=== PATIENT | male | born 1950 | race Caucasian/White ===

== ENCOUNTER 2016-07-17 20:40 | Emergency (ER) | payer OTHER ==
[~2016-07-17] VITALS: Ht 177.8 cm; Wt 97.5 kg
[~2016-07-17 20:40] MED LIST: ATORVASTATIN CA10 M1 PO; AUGMENTIN 875-1 EACH PO
--- NOTE | 2016-07-17 21:41 | ED GI/GU/ABDOMINAL COMPLAINT ---
History of Present Illness General Chief Complaint: General Adult Stated Complaint: HEMRRHOIDS Source: patient, family Exam Limitations: no limitations Vital Signs & Intake/Output Vital Signs & Intake/Output Vital Signs Date Time Temp Pulse Resp B/P B/P Pulse O2 O2 Flow FiO2 Mean Ox Delivery Rate 07/17 2210 97.3 87 18 139/85 94 Room Air 07/175 96.4 100 20 119/72 95 Room Air ED Intake and Output 07/18 0000 07/17 1200 Intake Total Output Total Balance Patient 215 lb Weight Weight Reported by Patient Measurement Method Allergies Coded Allergies: No Known Allergies (07/17/16) Reconcile Medications Atorvastatin Calcium 10 MG TABLET 1 TAB PO DAILY CHOLESTEROL (Reported) Lidocaine (Anecream5) 5 % CREAM..G. 1 MECHELLE TOP TID PRN HEMMORHOIDS Phenyleph/Pramoxin/Glycr/W.pet (Preparation H Cream) 0.25 %-1 % CREAM..G. 1 MECHELLE TOP TID PRN HEMMORHOIDS Triage Note: PT TO ED COMPLAINING OF PAIN FROM HEMRRHOIDS UNRELIEVED BY OTC MEDICATION. PT ALSO C/O OF RECTAL BLEEDING "EVEN WHEN I'M NOT GOING TO BATHROOM." REPORTS BRIGHT RED BLOOD. PT ON ABX FOR "CHEST INFECTION" REPORTS PRODUCTIVE COUGH WITH GREEN/BROWN SPUTUM. PT AWAKE/ALERT WITH EASY WOB IN TRIAGE. Triage Nurses Notes Reviewed? yes Duration: constant Timing: single episode today Quality/Severity: burning, severe Severity Numbers: 8 Radiation: no radiation Prior Abdominal Problems: similar symptoms HPI: Patient is a 66-year-old male who presents emergency room with concerns of a external hemorrhoid. Patient does state that he's had them before however he states that yesterday he had a significant bowel movement however symptoms began today of tender retrusion of soft tissue in his rectal region where he said intermittent bleeding. Denies any fevers chills or purulent discharge. (BRITNEY FLEMING) Past History Travel History Traveled to [place] past 21 day No Medical History Any Pertinent Medical History? see below for history Neurological: NONE EENT: NONE Cardiovascular: HIGH CHOLESTEROL Respiratory: TRACH Gastrointestinal: NONE Hepatic: NONE Renal: NONE Musculoskeletal: NONE Psychiatric: NONE Endocrine: NONE Blood Disorders: NONE Cancer(s): LARYNX CANCER EXTENSION FORESTER/Reproductive: NONE History of MRSA: No History of VRE: No History of CDIFF: No Pneumonia Vaccine: 12/13/14 Surgical History Surgical History: LARYNGECTOMY 2009 Psychosocial History Who do you live with Spouse Services at Home None What is your primary language Urdu Tobacco Use: Quit >30 days ago Family History Family History, If Any: FATHER, ; Cause: Stroke. Hx Contributory? No (BRITNEY FLEMING) Review of Systems Review of Systems Constitutional: Reports: no symptoms. EENTM: Reports: no symptoms. Respiratory: Reports: no symptoms. Cardiovascular: Reports: no symptoms. GI: Reports: see HPI. Genitourinary: Reports: no symptoms. Musculoskeletal: Reports: no symptoms. Skin: Reports: no symptoms. Neurological/Psychological: Reports: no symptoms. Hematologic/Endocrine: Reports: no symptoms. Immunologic/Allergic: Reports: no symptoms. All Other Systems: Reviewed and Negative (BRITNEY FLEMING) Physical Exam Physical Exam General Appearance: no apparent distress, alert, comfortable Gastrointestinal: normal bowel sounds, soft, non-tender Comments: Well-developed well-nourished no apparent distress. HEENT: Atraumatic, extraocular motion intact Neck: Supple, no lymphadenopathy Back: Nontender Respiratory: No respiratory distress Extremities: No edema, full range of motion RECTAL- noted 6 o'clock position of the rectal region mild soft external hemorrhoid with no active bleeding no surrounding erythema warmth or fluctuance, moderate point tenderness noted rectal tone intact Neuro: Alert and oriented x3 Psych: Mood affect normal, normal memory normal judgment. Core Measures ACS in differential dx? No Severe Sepsis Present: No Septic Shock Present: No (BRITNEY FLEMING) Progress Differential Diagnosis: ABSCESS, INTERNAL HEMORRHOIDS, EXTERNAL HEMORRHOIDS, gi BLEED, ANAL FISSURE Plan of Care: Patient at this time shows no signs of external thrombosed hemorrhoid. Patient does however show nonbleeding soft hemorrhoid and no concerns of rectal or perirectal abscess. Patient was strongly advised to follow-up WITH disposition planning and he will comply. Initial ED EKG: none (BRITNEY FLEMING) Departure Departure Disposition: HOME OR SELF CARE Condition: Stable Clinical Impression Primary Impression: External hemorrhoid Referrals: CRISTINO KO,HEIDI Caraballo (PCP/Family) MER KO,CHANELLE Daniel Additional Instructions: As discussed began warm sitz bath for your symptoms. Begin the prescription up Preparation H and viscous lidocaine and apply as directed. If symptoms worsen return to emergency room. If no better on Wednesday follow up with her established records management coordinator Dr. Yuen. Prescriptions waiting at [facility] pharmacy. Begin applying witch marissa Tucks pad and begin [id number] stool softener such as DOCULSATE. Departure Forms: Customer Survey General Discharge Information Prescriptions: Current Visit Scripts Phenyleph/Pramoxin/Glycr/W.pet (Preparation H Cream) 1 MECHELLE TOP TID PRN HEMMORHOIDS #1 TUBE Lidocaine (Anecream5) 1 MECHELLE TOP TID PRN HEMMORHOIDS #1 TUBE (BRITNEY FLEMING) PA/VACUUM CLEANER ASSEMBLER Co-Sign Statement Statement: ED Attending supervision documentation- [] I saw and evaluated the patient. I have also reviewed all the pertinent lab results and diagnostic results. I agree with the findings and the plan of care as documented in the PA's/VACUUM CLEANER ASSEMBLER's documentation. [x] I have reviewed the ED Record and agree with the PA's/VACUUM CLEANER ASSEMBLER's documentation. [] Additions or exceptions (if any) to the PAs/VACUUM CLEANER ASSEMBLER's note and plan are summarized below: [] (ROSANA KO,GINGER Harley)
[2016-07-17] MEDS ORDERED: PREPARATION H C26 GM TOP (22:05)
[2016-07-17] MEDS ORDERED: ANECREAM515 GM TOP (22:05)
[2016-07-17 22:10] VITALS: BP 139/85
== END 2016-07-17 22:18 ==
LOC: ERH 20:40
DX: K64.4 Residual hemorrhoidal skin tags (principal)